=== PATIENT | male | born 1990 | race Caucasian/White ===

== ENCOUNTER 2023-06-18 13:38 | Emergency (ER) | payer MEDICAID ==
[~2023-06-18] VITALS: Ht 182.9 cm; Wt 99.8 kg
[2023-06-18 15:11] LABS: BASOPHILS # (AUTO) 0.2 K/uL (0.0-0.2); BASOPHILS % (AUTO) 1.4 % (0.0-2.0); EOSINOPHILS # (AUTO) 0.1 K/uL (0.0-0.7); EOSINOPHILS % (AUTO) 0.8 % (0.0-6.0); HEMATOCRIT 45 % (39-51); HEMOGLOBIN 15.4 g/dL (13.5-17.5); LYMPHOCYTES # (AUTO) 1.9 K/uL (0.8-4.8); LYMPHOCYTES % (AUTO) 15.2 % (20.0-44.0); MEAN CORPUSCULAR HEMOGLOBIN 31 PG (26.0-33.0); MEAN CORPUSCULAR HGB CONC 34 g/dl (31.0-36.0); MEAN CORPUSCULAR VOLUME 92 fL (80-96); MONOCYTES % (AUTO) 7.6 % (2.0-12.0); NEUTROPHILS # (AUTO) 9.6 K/uL (1.8-8.9); PLATELET COUNT (AUTO) 288 K/uL (150-450); RED BLOOD CELL COUNT(AUTO) 4.91 MIL/uL (4.5-6.0); RED CELL DISTRIBUTION WIDTH 14.1 % (11.5-15.0); WHITE BLOOD COUNT (AUTO) 12.8 K/uL (4.3-11.0)
[2023-06-18 15:26] LABS: CALCIUM, SERUM 9.4 mg/dL (8.5-10.1); CARBON DIOXIDE 27 mmol/L (21-32); CHLORIDE 99 mmol/L (98-107); CREATININE 0.8 mg/dL (0.6-1.3); GLUCOSE 96 mg/dL (74-106); SODIUM SERUM 136 mmol/L (136-145); UREA NITROGEN, BLOOD 11 mg/dL (7-18)
[2023-06-18] MEDS ORDERED: CYCL10TA9 PO (18:11)
[2023-06-18] MEDS ORDERED: ACET-2605 PO (18:11)
[2023-06-18] MEDS ORDERED: ONDA4TAB11 PO (18:11)
[2023-06-18] MEDS ORDERED: CYCLOBENZAPRINE 10 MG TABLET ONE (18:15)
[2023-06-18] MEDS: CYCLOBENZAPRINE 10 MG TABLET PO ONE (18:18)
[2023-06-18] MEDS: ONDANSETRON 4 MG TAB.RAPDIS SL ONE (18:18)
[2023-06-18] MEDS: ACETAMINOPHEN ES 500 MG TABLET PO ONE (18:18)
[2023-06-18 18:19] VITALS: BP 145/77; TEMP 97.9; O2SAT 98
== END 2023-06-18 18:20 | disposition home or self-care (01) ==
LOC: ER 13:44
DX: R07.9 Chest pain, unspecified (principal); F14.10 Cocaine abuse, uncomplicated
CPT/HCPCS: 36415; 71045-TC; 80048-TC; 84484-TC; 85025-TC